=== PATIENT | male | born 1960 | race African-American/Black ===

== ENCOUNTER 2019-01-28 19:40 | Emergency (ER) | payer SELFPAY ==
[~2019-01-28] VITALS: Ht 180.3 cm; Wt 73.0 kg
[2019-01-28] MEDS ORDERED: KETOROLAC 60MG/2ML VIAL IM ONE (20:45)
[2019-01-28 21:36] VITALS: BP 144/90
== END 2019-01-28 21:36 | disposition home or self-care (01) ==
LOC: ER 19:40
DX: M25.512 Pain in left shoulder (principal)
CPT/HCPCS: 73030; 96372; 99283; J1885